=== PATIENT | male | born 1965 | race Caucasian/White ===

== ENCOUNTER 2017-01-01 10:57 | Day surgery (SDC) | payer BC ==
[~2017-01-01] VITALS: Ht 170.2 cm; Wt 81.4 kg
[~2017-01-01 10:57] MED LIST: AMOXICILLIN 8751 TAB PO; ATIVAN 0.50.5 MG/TAB PO; BENTYL20 MG PO; CEPHALEXIN500 M1 PO; CIPRO500 MG PO; COZAAR 50MG50 MG/TAB PO; FLAGYL500 MG PO; FLEXERIL 1010 MG/TAB PO; FLEXERIL PO; GLEEVEC400 MG; GLEEVEC400 MG PO; HCTZ 25MG25 MG PO; HCTZ12.5TAB PO; HYZAAR 12.5 MG-1 TAB PO; LISINOPRIL PO; LISINOPRIL20 MG PO; LOPRESSOR 225 MG/TAB PO; MELATONIN5 M1 PO; MICROZIDE12.5 MG PO; MOBIC 7.5MG7.5 MG PO; NORCO 325 MG-51 TAB PO; NORCO 325 MG-7.1 TAB PO; NORVASC 5MG5 MG/TAB PO; Norvasc PO; PEPTOBISMOL; PERCOCET 325 MG1 TA2 PO; PERCOCET 325 MG1 TA3 PO; PERCOCET 325 MG1 TAB; PERCOCET 325 MG1 TAB PO; PERCOCET 5/321 UDTAB PO; PRILOSEC 20MG20 MG PO; TASIGNA150 MG PO; ULTRAM 50MG TAB50 MG PO; VALTREX1 GM PO; ZESTRIL 10MG10 MG PO; ZESTRIL 20MG TA20 MG PO; ZESTRIL 5MG5 MG; ZOFRAN ODT4 MG PO
[2017-01-01 11:35] VITALS: BP 138/104; PULSE 88; TEMP 98.1
[2017-01-01] MEDS ORDERED: HYZAAR 25 MG-101 TAB PO (11:48)
[2017-01-01] MEDS ORDERED: PERCOCET 325 MG1 TA2 PO (11:48)
[2017-01-01] MEDS ORDERED: LUNESTA3 MG PO (11:50)
[2017-01-01 13:45] VITALS: BP 135/97; PULSE 95; TEMP 98.8
[2017-01-01 14:00] VITALS: BP 128/95; PULSE 89
[2017-01-01 14:15] VITALS: BP 120/99; PULSE 86
== END 2017-01-01 14:35 | disposition home or self-care (01) ==
LOC: SDCO 10:57
DX: K22.2 Esophageal obstruction (principal); K44.9 Diaphragmatic hernia without obstruction or gangrene; K21.0 Gastro-esophageal reflux disease with esophagitis; R13.12 Dysphagia, oropharyngeal phase; F41.9 Anxiety disorder, unspecified; Z87.19 Personal history of other diseases of the digestive system; Z79.899 Other long term (current) drug therapy
CPT/HCPCS: J2250; J3010; J7030

== ENCOUNTER → 2017-01-22 | Outpatient (CLI) | payer BC ==
[~2017-01-22] MED LIST changes: +DESYREL 50MG50 MG PO; +HYZAAR 25 MG-101 TAB PO; +KLONOPIN 1MG1 MG PO; +LASIX 20MG TABL20 MG PO; +LUNESTA3 MG PO; +REGLAN 10MG10 MG/TAB PO
== END ==
LOC: COL.RAD 10:00
DX: K22.4 Dyskinesia of esophagus (principal); K21.9 Gastro-esophageal reflux disease without esophagitis; Z98.890 Other specified postprocedural states

== ENCOUNTER 2017-08-03 12:14 | Emergency (ER) | payer BC ==
[~2017-08-03] VITALS: Ht 172.7 cm; Wt 77.3 kg
[~2017-08-03 12:14] MED LIST changes: -DESYREL 50MG50 MG PO; -KLONOPIN 1MG1 MG PO; -LASIX 20MG TABL20 MG PO; -REGLAN 10MG10 MG/TAB PO
[2017-08-03 12:59] LABS: BASO # 0.1 (0.0-0.2); BASO % 2.5 % (0.0-2.0); EOS # 0.1 (0.0-0.7); EOS % 2.5 % (0-4.0); GRAN # 1.5 (1.4-6.5); GRAN % 45.7 % (42.2-75.2); HEMATOCRIT 40.6 % (42.0-52.0); HEMOGLOBIN 14.5 g/dl (13.5-18.0); LYMPH # 1.2 (1.2-3.4); LYMPH % 35.9 % (20.0-51.0); MEAN CELL VOLUME 92 fl (80.0-100.0); MEAN CORPUSCULAR HEMOGLOBIN 33 pg (27.0-31.0); MEAN CORPUSCULAR HGB CONC 36 g/dl (33.0-37.0); MEAN PLATELET VOLUME 9.6 fl (7.4-10.4); MONO # 0.4 (0.1-0.6); MONO % 13.4 % (1.7-9.3); PLATELET COUNT 193 K/mm3 (130-400); RED BLOOD COUNT 4.41 M/mm3 (4.20-5.60); REDCELL DISTRIBUTION WIDTH-CV 14.1 % (11.5-14.5); WHITE BLOOD COUNT 3.2 K/mm3 (4.8-10.8)
[2017-08-03 13:10] LABS: ADJUSTED CALCIUM 8.7 mg/dL (8.4-10.2); ALANINE AMINOTRANSFERASE 46 U/L (21-72); ALBUMIN 4.8 gm/dL (3.5-5.0); ALKALINE PHOSPHATASE 60 U/L (50-136); ANION GAP 15 mmol/L (7-16); BILIRUBIN,TOTAL 0.7 mg/dL (0.0-1.0); BLOOD UREA NITROGEN 10 mg/dL (9-20); CALCIUM 9.3 mg/dL (8.4-10.2); CARBON DIOXIDE 25 mmol/L (22-30); CHLORIDE 99 mmol/L (98-107); GLUCOSE 99 mg/dL (74-106); POTASSIUM 3.1 mmol/L (3.4-5.0); SODIUM 139 mmol/L (137-145); TOTAL PROTEIN 7.6 gm/dL (6.4-8.2)
[2017-08-03] MEDS ORDERED: KLONOPIN 1MG1 MG PO (13:18)
[2017-08-03] MEDS ORDERED: DESYREL 50MG50 MG PO (13:19)
[2017-08-03] MEDS ORDERED: REGLAN 10MG10 MG/TAB PO (13:19)
[2017-08-03] MEDS ORDERED: LASIX 20MG TABL20 MG PO (13:20)
[2017-08-03 13:26] LABS: PROLACTIN 6.8 ng/mL (3.7-17.9)
[2017-08-03 14:04] LABS: C-REACTIVE PROTEIN < 0.5 mg/dL (0.0-0.9)
[2017-08-03 15:58] LABS: ACETAMINOPHEN < 10 ug/mL (10-30); SALICYLATE < 1.0 mg/dL
[2017-08-03 16:48] LABS: PH 5 (5-8); SQUAMOUS EPITHELIAL 0-2 /hpf; URINE APPEARANCE Cloudy; URINE BACTERIA None Seen /hpf; URINE BILIRUBIN Negative (NEGATIVE); URINE BLOOD Negative (NEGATIVE); URINE COLOR Yellow; URINE GLUCOSE Negative (NEGATIVE); URINE KETONE 1+ (NEGATIVE); URINE UROBILINOGEN Negative (NEGATIVE)
[2017-08-03 16:50] LABS: URINE WBC 20-50 /hpf
[2017-08-03 16:57] LABS: AMPHETAMINE URINE NEGATIVE; BARBITURATES URINE NEGATIVE; BENZODIAZEPINES URINE POSITIVE; BUPRENORPHINE URINE NEGATIVE; METHADONE URINE NEGATIVE; OPIATES URINE NEGATIVE; OXYCODONE URINE POSITIVE; PHENCYCLIDINE URINE NEGATIVE; PROPOXYPHENE URINE NEGATIVE; THC CANNABINOIDS URINE NEGATIVE
[2017-08-03 20:01] VITALS: BP 152/93; PULSE 79; TEMP 99.1
== END 2017-08-03 20:11 | disposition home or self-care (01) ==
LOC: COL.ER 12:14
PROVIDERS: Emergency Medicine
DX: F10.129 Alcohol abuse with intoxication, unspecified (principal); F29 Unspecified psychosis not due to a substance or known physiological condition; F41.9 Anxiety disorder, unspecified; Y90.3 Blood alcohol level of 60-79 mg/100 ml
CPT/HCPCS: J1630; J2060; J7030

== ENCOUNTER → 2017-08-11 | Outpatient (CLI) | payer BC ==
[~2017-08-11] MED LIST changes: +DESYREL 50MG50 MG PO; +KLONOPIN 1MG1 MG PO; +LASIX 20MG TABL20 MG PO; +REGLAN 10MG10 MG/TAB PO
== END ==
LOC: BHSO 13:02
DX: F33.1 Major depressive disorder, recurrent, moderate (principal)
CPT/HCPCS: 90791-AI

== ENCOUNTER → 2017-08-23 | Outpatient (CLI) | payer BC | LOC: BHSO 14:36 | DX: F33.1 Major depressive disorder, recurrent, moderate (principal) ==

== ENCOUNTER 2017-11-25 12:20 | Emergency (ER) | payer BC ==
[~2017-11-25] VITALS: Ht 172.7 cm; Wt 79.5 kg
[2017-11-25 12:29] VITALS: TEMP 98.3
[2017-11-25 12:45] LABS: BASO % 1.2 % (0.0-2.0); EOS # 0.1 (0.0-0.7); EOS % 3.9 % (0-4.0); GRAN # 1.9 (1.4-6.5); GRAN % 58.4 % (42.2-75.2); HEMATOCRIT 39.3 % (42.0-52.0); HEMOGLOBIN 14.1 g/dl (13.5-18.0); LYMPH # 0.6 (1.2-3.4); LYMPH % 19.3 % (20.0-51.0); MEAN CELL VOLUME 100 fl (80.0-100.0); MEAN CORPUSCULAR HEMOGLOBIN 36 pg (27.0-31.0); MEAN CORPUSCULAR HGB CONC 36 g/dl (33.0-37.0); MEAN PLATELET VOLUME 9.3 fl (7.4-10.4); MONO # 0.6 (0.1-0.6); MONO % 16.6 % (1.7-9.3); PLATELET COUNT 138 K/mm3 (130-400); RED BLOOD COUNT 3.95 M/mm3 (4.20-5.60); WHITE BLOOD COUNT 3.3 K/mm3 (4.8-10.8)
[2017-11-25 12:50] LABS: PROTHROMBIN TIME 11.4 SECONDS (9.7-12.8)
[2017-11-25 12:52] LABS: PARTIAL THROMBOPLASTIN TIME 25.6 SECONDS (26.0-37.0)
[2017-11-25 12:55] LABS: ADJUSTED CALCIUM 8.8 mg/dL (8.4-10.2); ALANINE AMINOTRANSFERASE 50 U/L (21-72); ALBUMIN 4.9 gm/dL (3.5-5.0); ALKALINE PHOSPHATASE 55 U/L (50-136); ANION GAP 11 mmol/L (7-16); BILIRUBIN,TOTAL 0.9 mg/dL (0.0-1.0); BLOOD UREA NITROGEN 14 mg/dL (9-20); CALCIUM 9.5 mg/dL (8.4-10.2); CARBON DIOXIDE 27 mmol/L (22-30); CHLORIDE 98 mmol/L (98-107); CREATININE, serum 1.16 mg/dL (0.66-1.25); GLUCOSE 137 mg/dL (74-106); LIPASE 94 U/L (23-300); POTASSIUM 3.5 mmol/L (3.4-5.0); SODIUM 136 mmol/L (137-145); TOTAL PROTEIN 7.7 gm/dL (6.4-8.2)
[2017-11-25 13:04] LABS: COLLECTION METHOD CLEAN CATCH
[2017-11-25 13:05] LABS: TROPONIN-I < 0.012 ng/mL (0.000-0.034)
[2017-11-25 13:11] LABS: MUCOUS Present /lpf; PH 8 (5-8); SQUAMOUS EPITHELIAL 0-2 /hpf; URINE APPEARANCE Clear; URINE BACTERIA None Seen /hpf; URINE BILIRUBIN Negative (NEGATIVE); URINE BLOOD Negative (NEGATIVE); URINE COLOR Yellow; URINE GLUCOSE Negative (NEGATIVE); URINE KETONE Negative (NEGATIVE); URINE LEUKOCYTE ESTERASE Negative (NEGATIVE); URINE PROTEIN(semi-quant) Negative (NEGATIVE); URINE RBC 0-2 /hpf; URINE UROBILINOGEN Negative (NEGATIVE)
[2017-11-25] MEDS ORDERED: PROTONIX 40MG T40 MG PO (16:02)
[2017-11-25] MEDS ORDERED: NORCO 325 MG-51 TAB PO (16:02)
[2017-11-25] MEDS ORDERED: ZOFRAN ODT4 MG PO (16:02)
[2017-11-25] MEDS ORDERED: VALIUM 5MG T5 MG/TAB PO (16:21)
[2017-11-25 17:04] VITALS: BP 107/81; PULSE 89
== END 2017-11-25 17:06 | disposition home or self-care (01) ==
LOC: COL.ER 12:20
PROVIDERS: Emergency Medicine
DX: R10.31 Right lower quadrant pain (principal); R10.32 Left lower quadrant pain; I10 Essential (primary) hypertension; Z87.19 Personal history of other diseases of the digestive system; Z85.6 Personal history of leukemia
CPT/HCPCS: C9113; J1170; J2405; J7030; Q9967

== ENCOUNTER 2017-12-13 00:25 | Emergency (ER) | payer BC ==
[~2017-12-13] VITALS: Ht 172.7 cm; Wt 79.5 kg
[~2017-12-13 00:25] MED LIST changes: +PROTONIX 40MG T40 MG PO; +VALIUM 5MG T5 MG/TAB PO
[2017-12-13 02:32] VITALS: BP 95/53
== END 2017-12-13 02:40 | disposition home or self-care (01) ==
LOC: COL.ER 00:25
DX: R06.2 Wheezing (principal)
CPT/HCPCS: J1100; J1200; J2060; J2930; J7030

== ENCOUNTER → 2018-01-05 | Outpatient (CLI) | payer BC | LOC: BHSO 15:35 | DX: F41.1 Generalized anxiety disorder (principal) | CPT/HCPCS: G0463 ==

== ENCOUNTER → 2018-01-06 | Outpatient (CLI) | payer BC | LOC: COL.RAD 07:57 | DX: K44.9 Diaphragmatic hernia without obstruction or gangrene (principal) ==

== ENCOUNTER 2018-02-11 17:21 | Emergency (ER) | payer BC ==
[~2018-02-11] VITALS: Ht 170.2 cm; Wt 77.3 kg
[2018-02-11 17:54] VITALS: TEMP 97.6
[2018-02-11 18:37] LABS: COLLECTION METHOD CLEAN CATCH
[2018-02-11] MEDS ORDERED: SEROQUEL 1100 MG/TAB PO (18:47)
[2018-02-11] MEDS ORDERED: ATIVAN 0.50.5 MG/TAB PO (18:48)
[2018-02-11] MEDS ORDERED: BOSULIF100 MG PO (18:49)
[2018-02-11] MEDS ORDERED: EFFEXOR-XR150 MG PO (18:49)
[2018-02-11 19:02] LABS: MUCOUS Present /lpf; PH 5 (5-8); SQUAMOUS EPITHELIAL 0-2 /hpf; URINE APPEARANCE Clear; URINE BACTERIA Rare /hpf; URINE BILIRUBIN Negative (NEGATIVE); URINE BLOOD Negative (NEGATIVE); URINE COLOR Yellow; URINE GLUCOSE Negative (NEGATIVE); URINE KETONE Negative (NEGATIVE); URINE LEUKOCYTE ESTERASE Negative (NEGATIVE); URINE NITRATE Negative (NEGATIVE); URINE PROTEIN(semi-quant) Negative (NEGATIVE); URINE UROBILINOGEN Negative (NEGATIVE)
[2018-02-11 19:03] LABS: BASO # 0.1 (0.0-0.2); BASO % 0.9 % (0.0-2.0); EOS # 0.7 (0.0-0.7); EOS % 10.5 % (0-4.0); GRAN # 3.8 (1.4-6.5); GRAN % 59.1 % (42.2-75.2); HEMATOCRIT 37.3 % (42.0-52.0); HEMOGLOBIN 13.2 g/dl (13.5-18.0); LYMPH # 0.9 (1.2-3.4); LYMPH % 14.1 % (20.0-51.0); MEAN CELL VOLUME 96 fl (80.0-100.0); MEAN CORPUSCULAR HEMOGLOBIN 34 pg (27.0-31.0); MEAN CORPUSCULAR HGB CONC 35 g/dl (33.0-37.0); MEAN PLATELET VOLUME 9.8 fl (7.4-10.4); MONO % 14.9 % (1.7-9.3); PLATELET COUNT 224 K/mm3 (130-400); RED BLOOD COUNT 3.87 M/mm3 (4.20-5.60); REDCELL DISTRIBUTION WIDTH-CV 13.1 % (11.5-14.5)
[2018-02-11 19:18] LABS: ALBUMIN 4.4 gm/dL (3.5-5.0); BILIRUBIN,TOTAL 0.3 mg/dL (0.0-1.0); CALCIUM 8.5 mg/dL (8.4-10.2); CREATININE, serum 1.49 mg/dL (0.66-1.25); POTASSIUM 3.5 mmol/L (3.4-5.0); TOTAL PROTEIN 7.2 gm/dL (6.4-8.2)
[2018-02-11] MEDS ORDERED: ZOFRAN ODT4 MG PO (20:36)
[2018-02-11 20:44] VITALS: BP 104/77; PULSE 76
== END 2018-02-11 20:48 | disposition home or self-care (01) ==
LOC: COL.ER 17:21
PROVIDERS: Emergency Medicine
DX: K52.9 Noninfective gastroenteritis and colitis, unspecified (principal); T45.1X5A Adverse effect of antineoplastic and immunosuppressive drugs, initial encounter; I10 Essential (primary) hypertension; Z98.890 Other specified postprocedural states
CPT/HCPCS: J2765; J3010; J7030

== ENCOUNTER 2018-02-14 12:33 | Emergency (ER) | payer BC ==
[~2018-02-14] VITALS: Ht 170.2 cm; Wt 77.3 kg
[~2018-02-14 12:33] MED LIST changes: +BOSULIF100 MG PO; +EFFEXOR-XR150 MG PO; +SEROQUEL 1100 MG/TAB PO
[2018-02-14 12:36] VITALS: TEMP 97.9
[2018-02-14 13:15] LABS: COLLECTION METHOD CLEAN CATCH
[2018-02-14 13:20] LABS: BASO # 0.1 (0.0-0.2); BASO % 1.9 % (0.0-2.0); EOS # 1.5 (0.0-0.7); EOS % 23.1 % (0-4.0); GRAN # 3.1 (1.4-6.5); GRAN % 49.3 % (42.2-75.2); HEMOGLOBIN 12.5 g/dl (13.5-18.0); LYMPH # 0.9 (1.2-3.4); LYMPH % 14.3 % (20.0-51.0); MEAN CELL VOLUME 97 fl (80.0-100.0); MEAN CORPUSCULAR HEMOGLOBIN 34 pg (27.0-31.0); MEAN CORPUSCULAR HGB CONC 35 g/dl (33.0-37.0); MEAN PLATELET VOLUME 9.6 fl (7.4-10.4); MONO # 0.7 (0.1-0.6); MONO % 10.6 % (1.7-9.3); PLATELET COUNT 247 K/mm3 (130-400); RED BLOOD COUNT 3.69 M/mm3 (4.20-5.60); REDCELL DISTRIBUTION WIDTH-CV 13.1 % (11.5-14.5)
[2018-02-14 13:24] LABS: MUCOUS Present /lpf; PH 5 (5-8); SQUAMOUS EPITHELIAL 0-2 /hpf; URINE APPEARANCE Hazy; URINE BACTERIA None Seen /hpf; URINE BILIRUBIN Negative (NEGATIVE); URINE BLOOD Negative (NEGATIVE); URINE COLOR Amber; URINE GLUCOSE Negative (NEGATIVE); URINE KETONE Negative (NEGATIVE); URINE LEUKOCYTE ESTERASE Negative (NEGATIVE); URINE NITRATE Negative (NEGATIVE); URINE PROTEIN(semi-quant) 1+ (NEGATIVE); URINE RBC 0-2 /hpf
[2018-02-14 13:34] LABS: HEMATOCRIT 35.7 % (42.0-52.0)
[2018-02-14 13:38] LABS: ALBUMIN 3.9 gm/dL (3.5-5.0); BILIRUBIN,TOTAL 0.4 mg/dL (0.0-1.0); C-REACTIVE PROTEIN 2.8 mg/dL (0.0-0.9); CREATININE, serum 0.98 mg/dL (0.66-1.25); POTASSIUM 3.8 mmol/L (3.4-5.0); TOTAL PROTEIN 6.8 gm/dL (6.4-8.2)
[2018-02-14 14:15] VITALS: BP 130/86; PULSE 92
== END 2018-02-14 14:16 | disposition home or self-care (01) ==
LOC: COL.ER 12:33
PROVIDERS: Emergency Medicine
DX: R31.9 Hematuria, unspecified (principal); I10 Essential (primary) hypertension; K21.9 Gastro-esophageal reflux disease without esophagitis; Z87.442 Personal history of urinary calculi

== ENCOUNTER → 2018-03-14 | Outpatient (CLI) | payer BC | LOC: BHSO 13:18 | DX: F10.20 Alcohol dependence, uncomplicated (principal) | CPT/HCPCS: G0463 ==

== ENCOUNTER → 2018-04-05 | Outpatient (CLI) | payer BC | LOC: BHSO 13:01 | DX: F10.20 Alcohol dependence, uncomplicated (principal) | CPT/HCPCS: G0463 ==

== ENCOUNTER 2018-05-02 12:29 | Emergency (ER) | payer BC ==
[~2018-05-02] VITALS: Ht 172.7 cm; Wt 79.5 kg
[2018-05-02 13:58] VITALS: TEMP 96.9
[2018-05-02 14:19] LABS: BASO # 0.1 (0.0-0.2); BASO % 0.8 % (0.0-2.0); EOS # 0.2 (0.0-0.7); EOS % 1.9 % (0-4.0); GRAN # 6.8 (1.4-6.5); GRAN % 73.1 % (42.2-75.2); HEMATOCRIT 42.4 % (42.0-52.0); HEMOGLOBIN 14.7 g/dl (13.5-18.0); LYMPH # 1.1 (1.2-3.4); LYMPH % 12.3 % (20.0-51.0); MEAN CELL VOLUME 94 fl (80.0-100.0); MEAN CORPUSCULAR HEMOGLOBIN 33 pg (27.0-31.0); MEAN CORPUSCULAR HGB CONC 35 g/dl (33.0-37.0); MEAN PLATELET VOLUME 10.6 fl (7.4-10.4); MONO # 1.1 (0.1-0.6); MONO % 11.6 % (1.7-9.3); PLATELET COUNT 232 K/mm3 (130-400); REDCELL DISTRIBUTION WIDTH-CV 14.3 % (11.5-14.5)
[2018-05-02 14:32] LABS: ALBUMIN 4.8 gm/dL (3.5-5.0); BILIRUBIN,TOTAL 1.3 mg/dL (0.0-1.0); C-REACTIVE PROTEIN 5.3 mg/dL (0.0-0.9); CALCIUM 9.7 mg/dL (8.4-10.2); CREATININE, serum 1.27 mg/dL (0.66-1.25); POTASSIUM 3.6 mmol/L (3.4-5.0); TOTAL PROTEIN 8.5 gm/dL (6.4-8.2)
[2018-05-02 15:09] LABS: COLLECTION METHOD CLEAN CATCH
[2018-05-02 15:15] LABS: MUCOUS Present /lpf; PH 6 (5-8); SQUAMOUS EPITHELIAL None Seen /hpf; URINE APPEARANCE Clear; URINE BACTERIA None Seen /hpf; URINE BILIRUBIN Negative (NEGATIVE); URINE BLOOD Negative (NEGATIVE); URINE COLOR Yellow; URINE GLUCOSE Negative (NEGATIVE); URINE KETONE 1+ (NEGATIVE); URINE LEUKOCYTE ESTERASE Negative (NEGATIVE); URINE NITRATE Negative (NEGATIVE); URINE PROTEIN(semi-quant) Negative (NEGATIVE); URINE RBC None Seen /hpf; URINE UROBILINOGEN Negative (NEGATIVE)
[2018-05-02] MEDS ORDERED: FLAGYL500 MG PO (15:27)
[2018-05-02] MEDS ORDERED: PERCOCET 325 MG1 TA2 PO (15:27)
[2018-05-02] MEDS ORDERED: CIPRO 500MG TA500 MG PO (15:27)
[2018-05-02 16:22] VITALS: BP 124/86; PULSE 82
== END 2018-05-02 16:22 | disposition home or self-care (01) ==
LOC: COL.ER 12:29
PROVIDERS: Emergency Medicine
DX: K57.92 Diverticulitis of intestine, part unspecified, without perforation or abscess without bleeding (principal); C92.10 Chronic myeloid leukemia, BCR/ABL-positive, not having achieved remission; Z87.442 Personal history of urinary calculi
CPT/HCPCS: J1170; J2270; J2405; J7030; Q9967

== ENCOUNTER 2018-05-30 20:52 | Emergency (ER) | payer BC ==
[~2018-05-30] VITALS: Ht 172.7 cm; Wt 77.3 kg
[~2018-05-30 20:52] MED LIST changes: +CIPRO 500MG TA500 MG PO
[2018-05-30 21:26] LABS: BASO # 0.1 (0.0-0.2); BASO % 1.5 % (0.0-2.0); EOS # 0.1 (0.0-0.7); EOS % 1.5 % (0-4.0); GRAN # 4.1 (1.4-6.5); GRAN % 59.9 % (42.2-75.2); HEMATOCRIT 42.3 % (42.0-52.0); HEMOGLOBIN 14.3 g/dl (13.5-18.0); LYMPH # 1.9 (1.2-3.4); LYMPH % 27.9 % (20.0-51.0); MEAN CELL VOLUME 94 fl (80.0-100.0); MEAN CORPUSCULAR HEMOGLOBIN 32 pg (27.0-31.0); MEAN CORPUSCULAR HGB CONC 34 g/dl (33.0-37.0); MEAN PLATELET VOLUME 9.5 fl (7.4-10.4); MONO # 0.6 (0.1-0.6); MONO % 8.9 % (1.7-9.3); PLATELET COUNT 255 K/mm3 (130-400); RED BLOOD COUNT 4.48 M/mm3 (4.20-5.60); REDCELL DISTRIBUTION WIDTH-CV 13.7 % (11.5-14.5)
[2018-05-30 21:50] LABS: ALBUMIN 4.5 gm/dL (3.5-5.0); BILIRUBIN,TOTAL 0.3 mg/dL (0.0-1.0); C-REACTIVE PROTEIN 1.9 mg/dL (0.0-0.9); CALCIUM 9.2 mg/dL (8.4-10.2); CREATININE, serum 0.95 mg/dL (0.66-1.25); MAGNESIUM 1.9 mg/dL (1.6-2.3); PHOSPHOROUS 2.6 mg/dL (2.5-4.5); POTASSIUM 3.8 mmol/L (3.4-5.0); TOTAL PROTEIN 7.6 gm/dL (6.4-8.2)
[2018-05-30 22:26] VITALS: TEMP 97.9
[2018-05-30] MEDS ORDERED: COZAAR 25MG25 MG/TAB PO (22:30)
[2018-05-30] MEDS ORDERED: VALTREX 50500 MG/TAB PO (22:34)
[2018-05-30 22:46] LABS: COLLECTION METHOD CLEAN CATCH
[2018-05-30 22:59] LABS: AMORPHOUS CRYSTAL Present /uL; MUCOUS Present /lpf; PH 7 (5-8); SQUAMOUS EPITHELIAL None Seen /hpf; URINE APPEARANCE Clear; URINE BACTERIA Rare /hpf; URINE BILIRUBIN Negative (NEGATIVE); URINE BLOOD Negative (NEGATIVE); URINE COLOR Yellow; URINE GLUCOSE 1+ (NEGATIVE); URINE KETONE 1+ (NEGATIVE); URINE LEUKOCYTE ESTERASE Negative (NEGATIVE); URINE NITRATE Negative (NEGATIVE); URINE PROTEIN(semi-quant) 2+ (NEGATIVE); URINE RBC 0-2 /hpf; URINE UROBILINOGEN Negative (NEGATIVE)
[2018-05-30 23:03] LABS: TRICYCLIC ANTIDEPRESS URINE NEGATIVE
[2018-05-31 00:50] VITALS: BP 121/70; PULSE 87
== END 2018-05-31 00:55 | disposition home or self-care (01) ==
LOC: COL.ER 20:52
PROVIDERS: Emergency Medicine
DX: F10.129 Alcohol abuse with intoxication, unspecified (principal); F29 Unspecified psychosis not due to a substance or known physiological condition; E87.2 Acidosis; I10 Essential (primary) hypertension; K21.9 Gastro-esophageal reflux disease without esophagitis; F41.9 Anxiety disorder, unspecified; F32.9 Major depressive disorder, single episode, unspecified; Y90.7 Blood alcohol level of 200-239 mg/100 ml; Z85.6 Personal history of leukemia
CPT/HCPCS: J2060; J3411; J7030

== ENCOUNTER → 2018-07-06 | Outpatient (CLI) | payer BC ==
[~2018-07-06] MED LIST changes: +COZAAR 25MG25 MG/TAB PO; +VALTREX 50500 MG/TAB PO
== END ==
LOC: BHSO 14:38
DX: F10.20 Alcohol dependence, uncomplicated (principal)
CPT/HCPCS: G0463

== ENCOUNTER → 2018-09-05 | Outpatient (CLI) | payer BC | LOC: BHSO 14:42 | DX: F10.20 Alcohol dependence, uncomplicated (principal) | CPT/HCPCS: G0463 ==

== ENCOUNTER → 2018-12-12 | Outpatient (CLI) | payer BC | LOC: BHSO 13:14 | DX: F33.42 Major depressive disorder, recurrent, in full remission (principal) | CPT/HCPCS: G0463 ==

== ENCOUNTER → 2018-12-26 | Outpatient (CLI) | payer BC | LOC: COL.LAB 11:54 | DX: Z96.641 Presence of right artificial hip joint (principal) ==

== ENCOUNTER → 2019-04-10 | Outpatient (CLI) | payer BC | LOC: BHSO 13:05 | DX: F33.42 Major depressive disorder, recurrent, in full remission (principal) | CPT/HCPCS: G0463 ==

== ENCOUNTER → 2019-08-25 | Outpatient (CLI) | payer MEDICARE | LOC: COL.RAD 09:27 | DX: M25.552 Pain in left hip (principal); M25.551 Pain in right hip; Z96.643 Presence of artificial hip joint, bilateral | CPT/HCPCS: A9503 ==

== ENCOUNTER → 2019-11-06 | Outpatient (CLI) | payer MEDICARE | LOC: BHSO 10:36 | DX: F41.1 Generalized anxiety disorder (principal) | CPT/HCPCS: G0463 ==

== ENCOUNTER → 2020-01-08 | Outpatient (CLI) | payer MEDICARE | LOC: BHSO 09:59 | DX: F33.41 Major depressive disorder, recurrent, in partial remission (principal) | CPT/HCPCS: G0463 ==

== ENCOUNTER 2021-05-18 04:20 | Inpatient (IN) | payer MEDICARE ==
[~2021-05-18] VITALS: Ht 172.7 cm; Wt 81.8 kg
[2021-05-18 04:58] LABS: BASO # 0.1 (0.0-0.2); BASO % 0.7 % (0.0-2.0); EOS # 0.2 (0.0-0.7); EOS % 2.8 % (0-4.0); GRAN # 5.1 (1.4-6.5); GRAN % 75.7 % (42.2-75.2); HEMOGLOBIN 12.6 g/dl (13.5-18.0); LYMPH % 14.4 % (20.0-51.0); MEAN CELL VOLUME 91 fl (80.0-100.0); MEAN CORPUSCULAR HEMOGLOBIN 31 pg (27.0-31.0); MEAN CORPUSCULAR HGB CONC 34 g/dl (33.0-37.0); MEAN PLATELET VOLUME 8.9 fl (7.4-10.4); MONO # 0.4 (0.1-0.6); PLATELET COUNT 134 K/mm3 (130-400); RED BLOOD COUNT 4.05 M/mm3 (4.20-5.60); REDCELL DISTRIBUTION WIDTH-CV 15.3 % (11.5-14.5)
[2021-05-18 05:04] LABS: HEMATOCRIT 36.7 % (42.0-52.0)
[2021-05-18 05:14] LABS: ALANINE AMINOTRANSFERASE 34 U/L (4-49); ALKALINE PHOSPHATASE 57 U/L (50-136); ANION GAP 8 mmol/L (7-16); AST,SGOT 43 U/L (15-37); BILIRUBIN,TOTAL 0.2 mg/dL (0.0-1.0); BLOOD UREA NITROGEN 12 mg/dL (9-20); C-REACTIVE PROTEIN 2.8 mg/dL (0.0-0.9); CALCIUM 8.4 mg/dL (8.4-10.2); CARBON DIOXIDE 24 mmol/L (22-30); CHLORIDE 109 mmol/L (98-107); CREATINE KINASE 526 U/L (55-170); GLUCOSE 143 mg/dL (74-106); POTASSIUM 3.5 mmol/L (3.4-5.0); SODIUM 140 mmol/L (137-145); TOTAL PROTEIN 6.7 gm/dL (6.4-8.2)
[2021-05-18 05:40] LABS: ERYTHROCYTE SEDIMENTATION RATE 5 mm/hr (0-30)
[2021-05-18 05:44] LABS: TROPONIN-I < 0.012 ng/mL (0.000-0.035)
[2021-05-18 05:47] LABS: INR 0.9 (0.8-3.0); PROTHROMBIN TIME 9.5 SECONDS (9.7-12.8)
[2021-05-18 05:49] LABS: ARTERIAL BLD GAS O2 SATURATION 88.3 % (92-100); ARTERIAL BLD GAS TCO2 CT 25.2; ARTERIAL BLOOD GAS BASE EXCESS -1.9 (-2-2); ARTERIAL BLOOD GAS HCO3 23.8 meq/L (22-26); ARTERIAL BLOOD GAS PCO2 44.4 mmHg (35-45); ARTERIAL BLOOD GAS PO2 58.6 mmHg (80-100); ARTERIAL BLOOD GAS pH 7.35 (7.35-7.45)
[2021-05-18 06:07] LABS: PARTIAL THROMBOPLASTIN TIME 25.7 SECONDS (26.0-37.0)
[2021-05-18 07:27] LABS: COLLECTION METHOD CLEAN CATCH
[2021-05-18 07:33] LABS: PH 6 (5-8); SQUAMOUS EPITHELIAL None Seen /hpf; URINE APPEARANCE Clear; URINE BACTERIA None Seen /hpf; URINE BILIRUBIN Negative (NEGATIVE); URINE BLOOD Negative (NEGATIVE); URINE COLOR Straw; URINE GLUCOSE Negative (NEGATIVE); URINE KETONE Negative (NEGATIVE); URINE LEUKOCYTE ESTERASE Negative (NEGATIVE); URINE NITRATE Negative (NEGATIVE); URINE PROTEIN(semi-quant) Negative (NEGATIVE); URINE RBC 0-2 /hpf; URINE UROBILINOGEN Negative (NEGATIVE)
[2021-05-18 12:00] VITALS: BP 145/75; PULSE 84; TEMP 98.6
[2021-05-18 15:40] VITALS: BP 149/98; PULSE 94; TEMP 98.7
--- NOTE | 2021-05-18 17:37 | NUR ---
PT REPORTING PAIN NOT RELIEVED BY MORPHINE OR NORCO. PT STILL COUGHING BUT HE REPORTS HE TRIES NOT TO DUE TO THE PAIN. PT DOES NOT CALL FREQUENTLY, WATER BROUGHT IN, PT HAS GOOD INTAKE, PT ON OXYGEN AT THIS TIME. NO OTHER NEEDS
[2021-05-18 20:36] VITALS: BP 167/87; PULSE 111; TEMP 98.3
[2021-05-18 21:30] VITALS: BP 160/82; PULSE 99; TEMP 98.6
[2021-05-18 22:24] LABS: CALCIUM 7.9 mg/dL (8.4-10.2); CREATININE, serum 0.71 (0.66-1.25); MAGNESIUM 1.3 mg/dL (1.6-2.3); POTASSIUM 3.6 mmol/L (3.4-5.0)
[2021-05-19] VITALS (10 sets, daily range): BP systolic 135–149; BP diastolic 66–95; PULSE 57–86; TEMP 97.5–99.2
[2021-05-19 06:13] LABS: ANION GAP 5 mmol/L (7-16); BLOOD UREA NITROGEN 11 mg/dL (9-20); CALCIUM 8.3 mg/dL (8.4-10.2); CARBON DIOXIDE 28 mmol/L (22-30); CHLORIDE 103 mmol/L (98-107); CREATININE, serum 0.79 (0.66-1.25); GLUCOSE 120 mg/dL (74-106); POTASSIUM 3.7 mmol/L (3.4-5.0); SODIUM 136 mmol/L (137-145)
[2021-05-19 06:14] LABS: BASO % 0.2 % (0.0-2.0); GRAN # 4.8 (1.4-6.5); GRAN % 82.9 % (42.2-75.2); HEMOGLOBIN 12.8 g/dl (13.5-18.0); LYMPH # 0.5 (1.2-3.4); LYMPH % 8.6 % (20.0-51.0); MEAN CELL VOLUME 90 fl (80.0-100.0); MEAN CORPUSCULAR HEMOGLOBIN 31 pg (27.0-31.0); MEAN CORPUSCULAR HGB CONC 35 g/dl (33.0-37.0); MEAN PLATELET VOLUME 9.8 fl (7.4-10.4); MONO # 0.5 (0.1-0.6); MONO % 7.8 % (1.7-9.3); PLATELET COUNT 120 K/mm3 (130-400); RED BLOOD COUNT 4.08 M/mm3 (4.20-5.60); REDCELL DISTRIBUTION WIDTH-CV 15.2 % (11.5-14.5)
[2021-05-19 06:17] LABS: HEMATOCRIT 36.6 % (42.0-52.0)
[2021-05-19 06:27] LABS: TROPONIN-I < 0.012 ng/mL (0.000-0.035)
--- NOTE | 2021-05-19 07:33 | NUR ---
Patient used call light to call the nurse around 1999. Patient reports having alcohol withdrawal syndrome. Patient was very anxious, tachycardic, tachypnic, diaphoresis, and visible tremors to BUE. Patient reports having about 1L of beer a day. Called CHRIS Goncalves and updated. PRN Ativan given per Alcohol detox scale. Patient slept well over the night. Alcohol detox scores 5 this morning. PRN Ativan given around 06:30 am. Shift report given to day shift nurse.
[2021-05-19 08:09] LABS: TRICYCLIC ANTIDEPRESS URINE NEGATIVE
--- NOTE | 2021-05-19 16:01 | NUR ---
Patient has been scoring 4-5 on CIWA. Tremors and nausea have remained constant. Patient has been receiving lorazepam for detox and morphine for pain in the upper abdomen. Overall, patient has been doing well and has not had any other complaints.
--- NOTE | 2021-05-19 16:20 | NUR ---
Senior Sql Developer met with patient to discuss discharge planning. Patient lives in [place] with his , Melissa (ph#[phone]) and sees Dr. Boss for primary care. Patient obtains medications from [facility] with no difficulties. Patient does not use any DME and is independent with [facility]. Patient does not have Advance Directives on file, however thinks he possibly has designated his , Melissa as DPOA-HC. Patient plans to return home upon discharge. PT/OT recommending home. Discharge Plan: Home
[2021-05-20] VITALS (9 sets, daily range): BP systolic 147–172; BP diastolic 90–116; PULSE 77–107; TEMP 98–98.8
--- NOTE | 2021-05-20 07:20 | NUR ---
Patient BP was 172/100 at 04:14 am. Patient asymptomatic. No c/o chest pain, headache or dizziness. PRN Ativan given for CIWA score of 6. BP recheck was 164/90 at 05:30 am. Called hospitalist BRIANDA Zavala and updated. Per BRIANDA Zavala, we will keep an eye on BP at this time. PRN pain meds given for upper abdominal pain throughout the night. Call light within reach. Report given to day shift nurse IZAIAH Plascencia.
[2021-05-20 07:47] LABS: BASO % 0.9 % (0.0-2.0); EOS % 0.9 % (0-4.0); GRAN % 67.7 % (42.2-75.2); HEMATOCRIT 37.7 % (42.0-52.0); HEMOGLOBIN 12.7 g/dl (13.5-18.0); LYMPH # 0.9 (1.2-3.4); LYMPH % 19.5 % (20.0-51.0); MEAN CELL VOLUME 92 fl (80.0-100.0); MEAN CORPUSCULAR HEMOGLOBIN 31 pg (27.0-31.0); MEAN CORPUSCULAR HGB CONC 34 g/dl (33.0-37.0); MEAN PLATELET VOLUME 9.7 fl (7.4-10.4); MONO # 0.5 (0.1-0.6); MONO % 10.5 % (1.7-9.3); PLATELET COUNT 116 K/mm3 (130-400); RED BLOOD COUNT 4.11 M/mm3 (4.20-5.60); REDCELL DISTRIBUTION WIDTH-CV 15.5 % (11.5-14.5)
[2021-05-20 08:02] LABS: ALBUMIN 3.7 gm/dL (3.5-5.0); BILIRUBIN,TOTAL 0.8 mg/dL (0.0-1.0); CALCIUM 8.4 mg/dL (8.4-10.2); CREATININE, serum 0.76 (0.66-1.25); MAGNESIUM 2.2 mg/dL (1.6-2.3); POTASSIUM 3.9 mmol/L (3.4-5.0); TOTAL PROTEIN 6.3 gm/dL (6.4-8.2)
--- NOTE | 2021-05-20 08:17 | NUR ---
Patient is doing well this morning. His pain remains at a 6/10 in his upper abdominal region. Tremors still present and patient scored a 6 on the CIWA. Patient is going down for an abdominal CT at this time.
--- NOTE | 2021-05-20 10:53 | NUR ---
Initial visit; Patient thanked Furniture Dipper for looking in on him and offering prayer and God's blessings.
--- NOTE | 2021-05-20 11:04 | NUR ---
PT HAD SECOND DIASTOLIC OVER 100, VICKIE LAMAR NOTIFIED AND ADDITIONAL ORDER OF NORVASC PLACED.
--- NOTE | 2021-05-20 18:15 | NUR ---
Patient has been resting well for a majority of the day. He has not called and asked for any pain meds at all. Patient just scored a 5 on CIWA and was given 1mg of lorazepam. I asked patient if he would like any medication for pain and he declined them.
--- NOTE | 2021-05-21 00:18 | NUR ---
MR Nima has been good but claiming he is shaking and he Aníbal has been 1 for me. I gave him trozadone schedule and melatonin and has been sleeping since . Bp is elevated and he is on RA. Will continue to monitor.
[2021-05-21 01:18] VITALS: BP 147/87; PULSE 82; TEMP 98
--- NOTE | 2021-05-21 04:26 | NUR ---
Mr nugent has been good. He has been sleeping all night.BP is a little elevated. Will continue to monitor.
[2021-05-21 04:52] VITALS: BP 138/95; PULSE 84; TEMP 98.4
[2021-05-21 06:04] VITALS: BP 161/92; PULSE 80
[2021-05-21 06:49] LABS: BASO % 0.7 % (0.0-2.0); EOS # 0.1 (0.0-0.7); EOS % 2.7 % (0-4.0); GRAN % 65.9 % (42.2-75.2); HEMATOCRIT 42.5 % (42.0-52.0); HEMOGLOBIN 14.5 g/dl (13.5-18.0); LYMPH # 0.8 (1.2-3.4); LYMPH % 16.7 % (20.0-51.0); MEAN CELL VOLUME 91 fl (80.0-100.0); MEAN CORPUSCULAR HEMOGLOBIN 31 pg (27.0-31.0); MEAN CORPUSCULAR HGB CONC 34 g/dl (33.0-37.0); MEAN PLATELET VOLUME 9.5 fl (7.4-10.4); MONO # 0.6 (0.1-0.6); MONO % 13.6 % (1.7-9.3); PLATELET COUNT 130 K/mm3 (130-400); RED BLOOD COUNT 4.66 M/mm3 (4.20-5.60); REDCELL DISTRIBUTION WIDTH-CV 15.3 % (11.5-14.5)
[2021-05-21 07:10] LABS: ALBUMIN 4.2 gm/dL (3.5-5.0); BILIRUBIN,TOTAL 0.7 mg/dL (0.0-1.0); CALCIUM 9.3 mg/dL (8.4-10.2); CREATININE, serum 0.91 (0.66-1.25); POTASSIUM 3.7 mmol/L (3.4-5.0); TOTAL PROTEIN 7.2 gm/dL (6.4-8.2)
[2021-05-21 08:00] VITALS: BP 144/103; PULSE 90; TEMP 98.4
--- NOTE | 2021-05-21 09:00 | NUR ---
Patient is sitting in bed preparing for a shower. Alert and oriented x 4, VS stable, no pain, nausea or vomiting. No further needs at the moment. Call light within reach.
[2021-05-21] MEDS ORDERED: NORVASC 10MG10 MG PO (09:39)
[2021-05-21] MEDS ORDERED: FOLIC ACID 11 MG/TA1 PO (09:39)
[2021-05-21] MEDS ORDERED: THIAMINE 1100 MG/TAB PO (09:39)
[2021-05-21] MEDS ORDERED: PROTONIX 40MG T40 MG PO (09:39)
[2021-05-21] MEDS ORDERED: DUO-KAPS1 CAP PO (09:40)
[2021-05-21] MEDS ORDERED: OMNICEF 300MG300 MG PO (09:42)
[2021-05-21] MEDS ORDERED: NORCO 325 MG-51 TAB PO ×2 (09:43→09:44)
[2021-05-21] MEDS ORDERED: PROAIR HFA0.09 MG/AC IH (09:47)
--- NOTE | 2021-05-21 11:13 | NUR ---
AGREE WITH EDWINA BLISS ASSESSMENTS THIS AM. DISCHARGE INSTRUCTIONS REVIEWED WITH PT. PT VERBALIZED UNDERSTANDING, NO QUESTIONS.
== END 2021-05-21 11:41 | disposition home or self-care (01) | DRG 193 ==
LOC: COL.ER 04:20 → MEDICAL 07:42
PROVIDERS: Emergency Medicine; Nurse Practitioner Family; Physician Assistant
DX: J18.9 Pneumonia, unspecified organism (principal); J96.01 Acute respiratory failure with hypoxia; C92.10 Chronic myeloid leukemia, BCR/ABL-positive, not having achieved remission; K21.9 Gastro-esophageal reflux disease without esophagitis; G89.21 Chronic pain due to trauma; M54.9 Dorsalgia, unspecified; D69.6 Thrombocytopenia, unspecified; D64.9 Anemia, unspecified; F10.10 Alcohol abuse, uncomplicated; E83.42 Hypomagnesemia; G89.29 Other chronic pain; R07.89 Other chest pain; K76.0 Fatty (change of) liver, not elsewhere classified; G47.00 Insomnia, unspecified
CPT/HCPCS: 99223-AI; 99232-AI; 99239; J0456; J0692; J1100; J1650; J1885; J2270; J2405; J3475; J7030; J7050; J7120; Q9967